=== PATIENT | male | born 1990 | race Asian ===

== ENCOUNTER 2017-08-01 16:04 | Emergency (ER) | payer OTHER ==
[~2017-08-01] VITALS: Ht 175.3 cm; Wt 79.4 kg
[2017-08-01] MEDS ORDERED: ATROPINE 0.01%-10 ML OD (16:59)
== END 2017-08-01 17:15 | disposition home or self-care (01) ==
LOC: ED 16:04
DX: S05.91XA Unspecified injury of right eye and orbit, initial encounter (principal); Z88.6 Allergy status to analgesic agent; W21.02XA Struck by soccer ball, initial encounter; Y93.89 Activity, other specified; Y92.89 Other specified places as the place of occurrence of the external cause
CPT/HCPCS: 99283